=== PATIENT | female | born 1940 | race Caucasian/White ===

== ENCOUNTER → 2024-08-15 | Outpatient (CLI) | payer MEDICARE ==
[2024-08-15 15:25] LABS: BASO # 0.01 K/mm3 (0.02-0.10); EOS # 0.06 K/mm3 (0.04-0.40); EOS % 1.3 % (1.0-5.0); HEMATOCRIT 40.6 % (37.0-47.0); HEMOGLOBIN 12.5 g/dL (12.5-16.0); LYMPH# 1.43 K/mm3 (1.50-4.00); MEAN CELL VOLUME 97 fl (78-100); MEAN CORPUSCULAR HEMOGLOBIN 30 pg (27-31); MEAN CORPUSCULAR HGB CONC 31 g/dL (33-37); MEAN PLATELET VOLUME 11.3 fl (7.4-10.4); MONO # 0.43 K/mm3 (0.20-0.80); NEU # 2.87 K/mm3 (1.40-6.50); PLATELET COUNT 208 K/mm3 (130-400); RED BLOOD COUNT 4.19 M/mm3 (4.10-5.30); RED CELL DISTRIBUTION WIDTH 12.5 % (11.5-14.5); WHITE BLOOD COUNT 4.8 K/mm3 (4.8-10.8)
[2024-08-15 15:29] LABS: ALBUMIN 4.3 g/dL (3.4-4.8)
[2024-08-15 15:30] LABS: CALCIUM 9.5 mg/dL (8.3-10.5)
[2024-08-15 15:31] LABS: TOTAL PROTEIN 7.2 g/dL (6.2-8.1)
[2024-08-15 15:33] LABS: TOTAL BILIRUBIN 0.5 mg/dL (0.2-1.2)
[2024-08-15 15:38] LABS: MAGNESIUM 1.76 mg/dL (1.60-2.60)
== END ==
LOC: LAB 15:08
PROVIDERS: Internal Medicine
DX: I10 Essential (primary) hypertension (principal); K90.9 Intestinal malabsorption, unspecified; E03.9 Hypothyroidism, unspecified